=== PATIENT | male | born 2000 | race Caucasian/White ===

== ENCOUNTER 2020-11-09 00:12 | Inpatient (IN) | payer MEDICAID ==
[~2020-11-09] VITALS: Ht 185.4 cm; Wt 117.0 kg
[2020-11-09] MEDS ORDERED: BISACODYL 10 MG SUPP PR PRN (01:00)
[2020-11-09] MEDS ORDERED: ACETAMINOPHEN 325 MG TABLET PO PRN (01:00)
[2020-11-09] MEDS ORDERED: DOCUSATE 100 MG CAPSULE PO PRN (01:00)
[2020-11-09] MEDS ORDERED: POLYETHYLENE GLYCOL 17 GM PACKET PO PRN (01:00)
[2020-11-09] MEDS ORDERED: ONDANSETRON ODT 4 MG PO PRN (01:00)
[2020-11-09 01:15] VITALS: BP 101/71
[2020-11-09] MEDS ORDERED: HYDROXYZINE PAMOATE 50MG CAP PO PRN (01:30)
[2020-11-09] MEDS ORDERED: PLEASE ENTER ALLERGIES MC SCH (01:30)
[2020-11-09] MEDS ORDERED: PLEASE ENTER HEIGHT AND WEIGHT MC SCH (01:30)
[2020-11-09 02:26] VITALS: BP 101/71
[2020-11-09 07:43] VITALS: BP 99/69
[2020-11-09] MEDS: DIVALPROEX 500 MG TABLET.DR PO SCH ×2 (08:55→21:21)
[2020-11-09] MEDS ORDERED: NICOTINE 14MG/24 HR PATCH.TD24 ONE (08:59)
[2020-11-09 09:51] LABS: CHOL/HDL RATIO 2.9; FREE T4 (FREE THYROXINE) 1.25 ng/dL (0.76-1.46); LDL/HDL RATIO 1.5 (0.5-3.0)
[2020-11-09] MEDS ORDERED: ESCI10TA97 PO ×2 (11:06→11:17)
[2020-11-09] MEDS ORDERED: VENL225T PO (11:17)
[2020-11-09] MEDS ORDERED: BUSP10TA PO (11:17)
[2020-11-09] MEDS ORDERED: RISP2TAB35 PO (11:17)
[2020-11-09] MEDS ORDERED: PROG100C10 PO (11:17)
[2020-11-09] MEDS ORDERED: SPIR100T4 PO (11:17)
[2020-11-09] MEDS ORDERED: PRAZ1CAP2 PO (11:17)
[2020-11-09] MEDS ORDERED: ALPR1TAB2 PO (11:17)
[2020-11-09] MEDS ORDERED: ESTR2TAB PO (11:17)
[2020-11-09 14:09] LABS: BASOPHILS % (AUTO) 1 % (0-1); EOSINOPHILS % (AUTO) 3 % (1-7); LYMPHOCYTES % (AUTO) 18 % (22-44); MEAN CORPUSCULAR HEMOGLOBIN 27.4 pg (27.5-34.5); MEAN CORPUSCULAR HGB CONC 33.1 g/dL (33.2-36.2); MEAN PLATELET VOLUME 10.4 fL (7.4-10.4); MONOCYTES % (AUTO) 7 % (2-9); NEUTROPHILS % (AUTO) 71 % (42-75); PLATELET COUNT 312 x10^3/uL (130-400); RED BLOOD COUNT 5.25 x10^6/uL (4.38-5.82); RED CELL DISTRIBUTION WIDTH 13.5 % (9.4-14.8)
[2020-11-09 14:29] LABS: ANION GAP 10 mmol/L (5-15); CHLORIDE 113 mmol/L (98-107); CREATININE 1.69 mg/dL (0.7-1.3)
[2020-11-09] MEDS: BUSPIRONE 10 MG TABLET PO SCH ×2 (14:45→21:21)
[2020-11-09] MEDS: VENLAFAXINE 75 MG CAP ER PO SCH (14:45)
[2020-11-09] MEDS ORDERED: ALBUTEROL HFA 90 MCG/SPRAY INH PRN (15:30)
[2020-11-09] MEDS: PROGESTERONE 100 MG CAPSULE PO SCH (16:31)
[2020-11-09 18:11] LABS: MD SCAN
[2020-11-09 19:30] VITALS: BP 103/69
[2020-11-09] MEDS: RISPERIDONE 2 MG TABLET PO SCH (21:21)
[2020-11-09] MEDS: PRAZOSIN 1 MG CAPSULE PO SCH (21:21)
[2020-11-09] MEDS: SPIRONOLACTONE 100 MG TABLET PO SCH (21:21)
[2020-11-09] MEDS: ESTRADIOL 2 MG TABLET PO SCH (21:21)
[2020-11-09] MEDS: NICOTINE 14MG/24 HR PATCH.TD24 TD SCH (21:22)
[2020-11-10 07:24] VITALS: BP 92/64
[2020-11-10] MEDS: ESTRADIOL 2 MG TABLET PO SCH ×2 (09:10→21:03)
[2020-11-10] MEDS: SPIRONOLACTONE 100 MG TABLET PO SCH ×2 (09:10→21:04)
[2020-11-10] MEDS: DIVALPROEX 500 MG TABLET.DR PO SCH ×2 (09:10→21:04)
[2020-11-10] MEDS: VENLAFAXINE 75 MG CAP ER PO SCH (09:10)
[2020-11-10] MEDS: BUSPIRONE 10 MG TABLET PO SCH ×2 (09:10→21:04)
[2020-11-10] MEDS: PROGESTERONE 100 MG CAPSULE PO SCH (09:11)
[2020-11-10] MEDS: NICOTINE 14MG/24 HR PATCH.TD24 TD SCH (09:42)
[2020-11-10] MEDS: LORazepam 1MG TABLET PO PRN (18:48)
[2020-11-10 19:51] VITALS: BP 92/76
[2020-11-10] MEDS: RISPERIDONE 2 MG TABLET PO SCH (21:04)
[2020-11-10] MEDS: PRAZOSIN 1 MG CAPSULE PO SCH (21:04)
[2020-11-11 07:52] VITALS: BP 102/71
[2020-11-11] MEDS: VENLAFAXINE 75 MG CAP ER PO SCH (08:29)
[2020-11-11] MEDS: LORazepam 1MG TABLET PO PRN ×2 (08:29→15:54)
[2020-11-11] MEDS: ESTRADIOL 2 MG TABLET PO SCH ×2 (08:29→20:24)
[2020-11-11] MEDS: DIVALPROEX 500 MG TABLET.DR PO SCH ×2 (08:29→20:24)
[2020-11-11] MEDS: BUSPIRONE 10 MG TABLET PO SCH ×2 (08:30→20:24)
[2020-11-11] MEDS: SPIRONOLACTONE 100 MG TABLET PO SCH ×2 (08:30→20:23)
[2020-11-11] MEDS: PROGESTERONE 100 MG CAPSULE PO SCH (08:30)
[2020-11-11] MEDS: NICOTINE 21 MG/24 HR PATCH.TD24 TD SCH (15:54)
[2020-11-11 19:38] VITALS: BP 113/79
[2020-11-11] MEDS: PRAZOSIN 1 MG CAPSULE PO SCH (20:24)
[2020-11-11] MEDS: RISPERIDONE 2 MG TABLET PO SCH (20:24)
[2020-11-12 07:45] VITALS: BP 116/77
[2020-11-12] MEDS: BUSPIRONE 10 MG TABLET PO SCH ×2 (08:07→20:30)
[2020-11-12] MEDS: VENLAFAXINE 75 MG CAP ER PO SCH (08:08)
[2020-11-12] MEDS: SPIRONOLACTONE 100 MG TABLET PO SCH ×2 (08:08→20:32)
[2020-11-12] MEDS: DIVALPROEX 500 MG TABLET.DR PO SCH ×2 (08:08→20:30)
[2020-11-12] MEDS: LORazepam 1MG TABLET PO PRN (08:08)
[2020-11-12] MEDS: ESTRADIOL 2 MG TABLET PO SCH ×2 (08:08→20:31)
[2020-11-12] MEDS: PROGESTERONE 100 MG CAPSULE PO SCH (09:00)
[2020-11-12] MEDS: NICOTINE 21 MG/24 HR PATCH.TD24 TD SCH (15:44)
[2020-11-12 19:22] VITALS: BP 128/85
[2020-11-12] MEDS: PRAZOSIN 1 MG CAPSULE PO SCH (20:31)
[2020-11-12] MEDS: RISPERIDONE 2 MG TABLET PO SCH (20:31)
[2020-11-13 07:32] VITALS: BP 113/78
[2020-11-13] MEDS: ESTRADIOL 2 MG TABLET PO SCH ×2 (07:57→20:34)
[2020-11-13] MEDS: DIVALPROEX 500 MG TABLET.DR PO SCH ×2 (07:58→20:34)
[2020-11-13] MEDS: BUSPIRONE 10 MG TABLET PO SCH ×2 (07:58→20:34)
[2020-11-13] MEDS: SPIRONOLACTONE 100 MG TABLET PO SCH ×2 (07:58→20:34)
[2020-11-13] MEDS: LORazepam 1MG TABLET PO PRN (07:58)
[2020-11-13] MEDS: VENLAFAXINE 75 MG CAP ER PO SCH (07:58)
[2020-11-13] MEDS: PROGESTERONE 100 MG CAPSULE PO SCH (09:00)
[2020-11-13] MEDS: NICOTINE 21 MG/24 HR PATCH.TD24 TD SCH (16:02)
[2020-11-13 19:23] VITALS: BP 125/86
[2020-11-13] MEDS: PRAZOSIN 1 MG CAPSULE PO SCH (20:34)
[2020-11-13] MEDS: RISPERIDONE 2 MG TABLET PO SCH (20:35)
[2020-11-13] MEDS ORDERED: MELATONIN 3 MG TABLET PO SCH (23:00)
[2020-11-13] MEDS ORDERED: MELATONIN MC SCH (23:45)
[2020-11-14] MEDS ORDERED: MELATONIN 3 MG TABLET PO PRN ×2 (01:00→23:00)
[2020-11-14 07:31] VITALS: BP 120/86
[2020-11-14] MEDS: DIVALPROEX 500 MG TABLET.DR PO SCH (08:05)
[2020-11-14] MEDS: BUSPIRONE 10 MG TABLET PO SCH (08:05)
[2020-11-14] MEDS: PROGESTERONE 100 MG CAPSULE PO SCH (08:05)
[2020-11-14] MEDS: ESTRADIOL 2 MG TABLET PO SCH (08:05)
[2020-11-14] MEDS: SPIRONOLACTONE 100 MG TABLET PO SCH (08:05)
[2020-11-14] MEDS: VENLAFAXINE 75 MG CAP ER PO SCH (08:06)
[2020-11-14] MEDS ORDERED: DIVA-61 PO (13:30)
[2020-11-14] MEDS ORDERED: HYDR50CA2 PO (13:30)
[2020-11-14] MEDS ORDERED: MELA3TAB31 PO (13:30)
[2020-11-14] MEDS ORDERED: BUSP10TA PO (13:30)
[2020-11-14] MEDS ORDERED: ALBU18HF INH (13:30)
[2020-11-14] MEDS ORDERED: NICO-587 TD (13:30)
[2020-11-14] MEDS ORDERED: MELATONIN 3 MG TABLET PO SCH (23:00)
== END 2020-11-14 14:13 | disposition home or self-care (01) | DRG 751 ==
LOC: 3E 00:12 → UNDOADMIN 00:12 → 3E 01:12
PROVIDERS: ADMIT Psychiatry & Neurology Psychosomatic Medicine; ATTEND Psychiatry & Neurology Psychosomatic Medicine
DX: F33.2 Major depressive disorder, recurrent severe without psychotic features (principal); F11.20 Opioid dependence, uncomplicated; D72.829 Elevated white blood cell count, unspecified; F43.10 Post-traumatic stress disorder, unspecified; F60.3 Borderline personality disorder; F64.9 Gender identity disorder, unspecified; I12.9 Hypertensive chronic kidney disease with stage 1 through stage 4 chronic kidney disease, or unspecified chronic kidney disease; J45.909 Unspecified asthma, uncomplicated; N18.9 Chronic kidney disease, unspecified; T50.902A Poisoning by unspecified drugs, medicaments and biological substances, intentional self-harm, initial encounter; Z66 Do not resuscitate; F13.20 Sedative, hypnotic or anxiolytic dependence, uncomplicated; F17.210 Nicotine dependence, cigarettes, uncomplicated; Z91.5 Personal history of self-harm; Z90.49 Acquired absence of other specified parts of digestive tract; Z88.1 Allergy status to other antibiotic agents; Z88.8 Allergy status to other drugs, medicaments and biological substances
CPT/HCPCS: 36415; 71045; 80048; 80061; 82607; 84145; 84439; 84443; 85025

== ENCOUNTER 2021-03-18 17:55 | Inpatient (IN) | payer MEDICAID ==
[~2021-03-18] VITALS: Ht 185.4 cm; Wt 110.4 kg
[~2021-03-18 17:55] MED LIST: ALBU18HF INH; ALPR1TAB2 PO; BUSP10TA PO; DIVA-61 PO; ESCI10TA97 PO; ESTR2TAB PO; HYDR50CA2 PO; MELA3TAB31 PO; NICO-587 TD; PRAZ1CAP2 PO; PROG100C10 PO; RISP2TAB35 PO; SPIR100T4 PO; VENL225T PO
[2021-03-18] MEDS ORDERED: DOCUSATE 100 MG CAPSULE PO PRN (20:00)
[2021-03-18] MEDS ORDERED: POLYETHYLENE GLYCOL 17 GM PACKET PO PRN (20:00)
[2021-03-18] MEDS ORDERED: ONDANSETRON ODT 4 MG PO PRN (20:00)
[2021-03-18] MEDS ORDERED: BISACODYL 10 MG SUPP PR PRN (20:00)
[2021-03-18 21:00] VITALS: BP 135/101
[2021-03-18] MEDS: SPIRONOLACTONE 100 MG TABLET PO SCH (21:00)
[2021-03-18] MEDS ORDERED: TOPIRAMATE 25 MG TABLET PO SCH (21:00)
[2021-03-18] MEDS ORDERED: SPIRONOLACTONE 50 MG TABLET ONE (21:48)
[2021-03-18] MEDS ORDERED: NICOTINE 14MG/24 HR PATCH.TD24 ONE (21:51)
[2021-03-18] MEDS: ESTRADIOL 2 MG TABLET PO SCH (21:54)
[2021-03-18] MEDS: NICOTINE 14MG/24 HR PATCH.TD24 TD SCH (21:57)
[2021-03-18] MEDS: QUETIAPINE 100MG TABLET PO PRN (22:00)
[2021-03-19 06:01] LABS: BASOPHILS % (AUTO) 1 % (0-1); EOSINOPHILS % (AUTO) 3 % (1-7); LYMPHOCYTES % (AUTO) 33 % (22-44); MEAN CORPUSCULAR HEMOGLOBIN 27.7 pg (27.5-34.5); MEAN CORPUSCULAR HGB CONC 34.2 g/dL (33.2-36.2); MEAN PLATELET VOLUME 10.1 fL (7.4-10.4); MONOCYTES % (AUTO) 6 % (2-9); NEUTROPHILS % (AUTO) 57 % (42-75); PLATELET COUNT 223 x10^3/uL (130-400); RED BLOOD COUNT 6.11 x10^6/uL (4.38-5.82); RED CELL DISTRIBUTION WIDTH 13.6 % (9.4-14.8)
[2021-03-19 06:19] LABS: ALBUMIN 3.2 g/dL (3.4-5.0); ANION GAP 9 mmol/L (5-15); CALCIUM 9.6 mg/dL (8.5-10.1); CHLORIDE 105 mmol/L (98-107)
[2021-03-19 06:49] LABS: ALANINE AMINOTRANSFERASE 26 U/L (12-78); ALKALINE PHOSPHATASE 71 U/L (45-117); BILIRUBIN,TOTAL 0.9 mg/dL (0.2-1.0); CREATININE 1.17 mg/dL (0.7-1.3); FREE T4 (FREE THYROXINE) 1.14 ng/dL (0.76-1.46); TOTAL PROTEIN 7.3 g/dL (6.4-8.2)
[2021-03-19 07:30] VITALS: BP 129/88
[2021-03-19] MEDS ORDERED: DULOXETINE 30 MG CAPSULE.DR PO SCH (09:00)
[2021-03-19] MEDS: SPIRONOLACTONE 100 MG TABLET PO SCH ×2 (09:06→20:35)
[2021-03-19] MEDS: ESTRADIOL 2 MG TABLET PO SCH ×2 (09:06→20:35)
[2021-03-19] MEDS: PROGESTERONE 100 MG CAPSULE PO SCH (09:07)
[2021-03-19 18:14] VITALS: BP 152/86
[2021-03-19] MEDS ORDERED: SPIRONOLACTONE 50 MG TABLET ONE (20:28)
[2021-03-19] MEDS: TOPIRAMATE 25 MG TABLET PO SCH (20:35)
[2021-03-19] MEDS: NICOTINE 14MG/24 HR PATCH.TD24 TD SCH (20:35)
[2021-03-19] MEDS: QUETIAPINE 100MG TABLET PO PRN (20:44)
[2021-03-20 07:23] VITALS: BP 115/84
[2021-03-20] MEDS: SPIRONOLACTONE 100 MG TABLET PO SCH ×2 (08:38→20:25)
[2021-03-20] MEDS: DULOXETINE 30 MG CAPSULE.DR PO SCH (08:38)
[2021-03-20] MEDS: PROGESTERONE 100 MG CAPSULE PO SCH (08:39)
[2021-03-20] MEDS: ESTRADIOL 2 MG TABLET PO SCH ×2 (08:39→20:24)
[2021-03-20] MEDS: NICOTINE 14MG/24 HR PATCH.TD24 TD SCH (08:41)
[2021-03-20] MEDS: ACETAMINOPHEN 325 MG TABLET PO PRN ×3 (08:43→20:24)
[2021-03-20] MEDS: LIDODERM 5% PATCH TD SCH (14:23)
[2021-03-20 19:47] VITALS: BP 128/89
[2021-03-20] MEDS: QUETIAPINE 100MG TABLET PO PRN (20:25)
[2021-03-20] MEDS: TOPIRAMATE 25 MG TABLET PO SCH (20:25)
[2021-03-20 21:23] LABS: MICROSCOPIC AUTO
[2021-03-21] MEDS: LIDODERM REMOVE PATCH NOTE XX SCH (02:33)
[2021-03-21 07:20] VITALS: BP 131/91
[2021-03-21] MEDS: ESTRADIOL 2 MG TABLET PO SCH ×2 (08:08→20:48)
[2021-03-21] MEDS: DULOXETINE 30 MG CAPSULE.DR PO SCH (08:08)
[2021-03-21] MEDS: SPIRONOLACTONE 100 MG TABLET PO SCH ×2 (08:08→20:48)
[2021-03-21] MEDS: PROGESTERONE 100 MG CAPSULE PO SCH (08:08)
[2021-03-21] MEDS: NICOTINE 14MG/24 HR PATCH.TD24 TD SCH (08:08)
[2021-03-21] MEDS: LIDODERM 5% PATCH TD SCH (14:57)
[2021-03-21 18:31] VITALS: BP 131/91
[2021-03-21] MEDS: LITHIUM CARBONATE 300 MG CAPSULE PO SCH (20:48)
[2021-03-21] MEDS: ACETAMINOPHEN 325 MG TABLET PO PRN (20:48)
[2021-03-21] MEDS: TOPIRAMATE 25 MG TABLET PO SCH (20:48)
[2021-03-21] MEDS: QUETIAPINE 100MG TABLET PO PRN (20:48)
[2021-03-22] MEDS: LIDODERM REMOVE PATCH NOTE XX SCH (02:30)
[2021-03-22 07:42] VITALS: BP 125/81
[2021-03-22] MEDS: SPIRONOLACTONE 100 MG TABLET PO SCH ×2 (08:59→20:53)
[2021-03-22] MEDS: ESTRADIOL 2 MG TABLET PO SCH ×2 (08:59→20:53)
[2021-03-22] MEDS: NICOTINE 14MG/24 HR PATCH.TD24 TD SCH (08:59)
[2021-03-22] MEDS: DULOXETINE 30 MG CAPSULE.DR PO SCH (08:59)
[2021-03-22] MEDS: PROGESTERONE 100 MG CAPSULE PO SCH (08:59)
[2021-03-22] MEDS: LIDODERM 5% PATCH TD SCH (14:30)
[2021-03-22 19:07] VITALS: BP 124/88
[2021-03-22] MEDS: LITHIUM CARBONATE 300 MG CAPSULE PO SCH (20:54)
[2021-03-22] MEDS: TOPIRAMATE 25 MG TABLET PO SCH (20:54)
[2021-03-22] MEDS: QUETIAPINE 100MG TABLET PO PRN (20:58)
[2021-03-23] MEDS: LIDODERM REMOVE PATCH NOTE XX SCH (02:30)
[2021-03-23 06:41] VITALS: BP 119/89
[2021-03-23] MEDS ORDERED: COVID-19 VAC,AD26(JANSSEN)/PF 0.5ML IM-VACC ONE ×2 (08:00→16:30)
[2021-03-23] MEDS: PROGESTERONE 100 MG CAPSULE PO SCH (09:00)
[2021-03-23] MEDS: SPIRONOLACTONE 100 MG TABLET PO SCH ×2 (09:00→20:15)
[2021-03-23] MEDS: DULOXETINE 30 MG CAPSULE.DR PO SCH (09:00)
[2021-03-23] MEDS: ESTRADIOL 2 MG TABLET PO SCH ×2 (09:00→20:15)
[2021-03-23] MEDS: NICOTINE 14MG/24 HR PATCH.TD24 TD SCH (09:03)
[2021-03-23] MEDS: LIDODERM 5% PATCH TD SCH (14:30)
[2021-03-23 19:44] VITALS: BP 119/82
[2021-03-23] MEDS: LITHIUM CARBONATE 300 MG CAPSULE PO SCH (20:15)
[2021-03-23] MEDS: TOPIRAMATE 25 MG TABLET PO SCH (20:15)
[2021-03-24] MEDS: LIDODERM REMOVE PATCH NOTE XX SCH (01:30)
[2021-03-24 07:27] VITALS: BP 126/90
[2021-03-24] MEDS: NICOTINE 14MG/24 HR PATCH.TD24 TD SCH (08:30)
[2021-03-24] MEDS: DULOXETINE 30 MG CAPSULE.DR PO SCH (08:30)
[2021-03-24] MEDS: ESTRADIOL 2 MG TABLET PO SCH ×2 (08:30→20:24)
[2021-03-24] MEDS: PROGESTERONE 100 MG CAPSULE PO SCH (08:31)
[2021-03-24] MEDS: SPIRONOLACTONE 100 MG TABLET PO SCH ×2 (08:31→20:24)
[2021-03-24] MEDS: LIDODERM 5% PATCH TD SCH (13:25)
[2021-03-24] MEDS: ACETAMINOPHEN 325 MG TABLET PO PRN ×2 (13:25→20:24)
[2021-03-24 19:34] VITALS: BP 127/83
[2021-03-24] MEDS: QUETIAPINE 100MG TABLET PO PRN (20:24)
[2021-03-24] MEDS: TOPIRAMATE 25 MG TABLET PO SCH (20:24)
[2021-03-24] MEDS: LITHIUM CARBONATE 300 MG CAPSULE PO SCH (20:24)
[2021-03-25] MEDS: LIDODERM REMOVE PATCH NOTE XX SCH (02:30)
[2021-03-25 07:27] VITALS: BP 107/75
[2021-03-25] MEDS: ESTRADIOL 2 MG TABLET PO SCH ×2 (07:54→20:55)
[2021-03-25] MEDS: DULOXETINE 30 MG CAPSULE.DR PO SCH (07:54)
[2021-03-25] MEDS: PROGESTERONE 100 MG CAPSULE PO SCH (07:54)
[2021-03-25] MEDS: SPIRONOLACTONE 100 MG TABLET PO SCH ×2 (07:54→20:55)
[2021-03-25] MEDS: NICOTINE 14MG/24 HR PATCH.TD24 TD SCH (07:55)
[2021-03-25] MEDS: LIDODERM 5% PATCH TD SCH (14:30)
[2021-03-25] MEDS ORDERED: LIDODERM 5% PATCH TD PRN (15:00)
[2021-03-25] MEDS ORDERED: LIDODERM REMOVE PATCH NOTE XX PRN (15:00)
[2021-03-25 19:09] VITALS: BP 121/93
[2021-03-25] MEDS: TOPIRAMATE 25 MG TABLET PO SCH (20:55)
[2021-03-25] MEDS: LITHIUM CARBONATE 300 MG CAPSULE PO SCH (20:55)
[2021-03-26 07:31] VITALS: BP 130/80
[2021-03-26] MEDS: PROGESTERONE 100 MG CAPSULE PO SCH (08:22)
[2021-03-26] MEDS: SPIRONOLACTONE 100 MG TABLET PO SCH ×2 (08:22→20:30)
[2021-03-26] MEDS: ESTRADIOL 2 MG TABLET PO SCH ×2 (08:22→20:31)
[2021-03-26] MEDS: DULOXETINE 30 MG CAPSULE.DR PO SCH (08:22)
[2021-03-26] MEDS: NICOTINE 14MG/24 HR PATCH.TD24 TD SCH (08:23)
[2021-03-26 19:39] VITALS: BP 135/90
[2021-03-26] MEDS: QUETIAPINE 100MG TABLET PO PRN (20:30)
[2021-03-26] MEDS: LITHIUM CARBONATE 300 MG CAPSULE PO SCH (20:31)
[2021-03-26] MEDS: TOPIRAMATE 25 MG TABLET PO SCH (20:31)
[2021-03-27 07:09] VITALS: BP 117/80
[2021-03-27] MEDS: SPIRONOLACTONE 100 MG TABLET PO SCH ×2 (08:29→20:09)
[2021-03-27] MEDS: DULOXETINE 30 MG CAPSULE.DR PO SCH (08:30)
[2021-03-27] MEDS: PROGESTERONE 100 MG CAPSULE PO SCH (08:30)
[2021-03-27] MEDS: ESTRADIOL 2 MG TABLET PO SCH ×2 (08:31→20:09)
[2021-03-27] MEDS: NICOTINE 14MG/24 HR PATCH.TD24 TD SCH (08:31)
[2021-03-27 19:08] VITALS: BP 121/81
[2021-03-27] MEDS: QUETIAPINE 100MG TABLET PO PRN (20:08)
[2021-03-27] MEDS: TOPIRAMATE 25 MG TABLET PO SCH (20:09)
[2021-03-27] MEDS: LITHIUM CARBONATE 300 MG CAPSULE PO SCH (20:09)
[2021-03-28 07:23] VITALS: BP 118/84
[2021-03-28] MEDS: PROGESTERONE 100 MG CAPSULE PO SCH (08:45)
[2021-03-28] MEDS: ESTRADIOL 2 MG TABLET PO SCH ×2 (08:45→20:04)
[2021-03-28] MEDS: SPIRONOLACTONE 100 MG TABLET PO SCH ×2 (08:45→20:04)
[2021-03-28] MEDS: NICOTINE 14MG/24 HR PATCH.TD24 TD SCH (08:45)
[2021-03-28] MEDS: DULOXETINE 30 MG CAPSULE.DR PO SCH (08:45)
[2021-03-28 19:24] VITALS: BP 135/80
[2021-03-28] MEDS: TOPIRAMATE 25 MG TABLET PO SCH (20:04)
[2021-03-28] MEDS: ACETAMINOPHEN 325 MG TABLET PO PRN (20:05)
[2021-03-28] MEDS: QUETIAPINE 100MG TABLET PO PRN (20:05)
[2021-03-28] MEDS: LITHIUM CARBONATE 300 MG CAPSULE PO SCH (20:05)
[2021-03-29 07:18] VITALS: BP 117/75
[2021-03-29] MEDS: DULOXETINE 30 MG CAPSULE.DR PO SCH (08:25)
[2021-03-29] MEDS: SPIRONOLACTONE 100 MG TABLET PO SCH ×2 (08:25→20:23)
[2021-03-29] MEDS: PROGESTERONE 100 MG CAPSULE PO SCH (08:25)
[2021-03-29] MEDS: ESTRADIOL 2 MG TABLET PO SCH ×2 (08:25→20:23)
[2021-03-29] MEDS: NICOTINE 14MG/24 HR PATCH.TD24 TD SCH (08:26)
[2021-03-29 19:03] VITALS: BP 117/75
[2021-03-29] MEDS: TOPIRAMATE 25 MG TABLET PO SCH (20:23)
[2021-03-29] MEDS: QUETIAPINE 100MG TABLET PO PRN (20:23)
[2021-03-29] MEDS: LITHIUM CARBONATE 300 MG CAPSULE PO SCH (20:23)
[2021-03-30 07:20] VITALS: BP 111/63
[2021-03-30] MEDS: ESTRADIOL 2 MG TABLET PO SCH (08:33)
[2021-03-30] MEDS: DULOXETINE 30 MG CAPSULE.DR PO SCH (08:37)
[2021-03-30] MEDS: PROGESTERONE 100 MG CAPSULE PO SCH (08:37)
[2021-03-30] MEDS: SPIRONOLACTONE 100 MG TABLET PO SCH (08:37)
[2021-03-30] MEDS: NICOTINE 14MG/24 HR PATCH.TD24 TD SCH (08:38)
[2021-03-30] MEDS ORDERED: NICO-486 TD (13:27)
[2021-03-30] MEDS ORDERED: LITH300C PO (13:27)
[2021-03-30] MEDS ORDERED: TOPI25TA32 PO (13:27)
[2021-03-30] MEDS ORDERED: DULO30CA2 PO (13:27)
[2021-03-30] MEDS ORDERED: QUET100T PO (13:27)
== END 2021-03-30 14:37 | disposition home or self-care (01) | DRG 885 ==
LOC: 3E 17:55 → UNDOADMIN 17:55
PROVIDERS: ADMIT Psychiatry & Neurology Psychosomatic Medicine; ATTEND Psychiatry & Neurology Psychosomatic Medicine
DX: F33.2 Major depressive disorder, recurrent severe without psychotic features (principal); N18.9 Chronic kidney disease, unspecified; R45.851 Suicidal ideations; E87.1 Hypo-osmolality and hyponatremia; Z20.822 Contact with and (suspected) exposure to COVID-19; F43.10 Post-traumatic stress disorder, unspecified; F64.9 Gender identity disorder, unspecified; F60.3 Borderline personality disorder; R45.850 Homicidal ideations; I12.9 Hypertensive chronic kidney disease with stage 1 through stage 4 chronic kidney disease, or unspecified chronic kidney disease; F41.9 Anxiety disorder, unspecified; J45.909 Unspecified asthma, uncomplicated; F17.210 Nicotine dependence, cigarettes, uncomplicated; G47.00 Insomnia, unspecified; D72.829 Elevated white blood cell count, unspecified; Z88.0 Allergy status to penicillin; Z90.49 Acquired absence of other specified parts of digestive tract; Z88.1 Allergy status to other antibiotic agents; K59.00 Constipation, unspecified; Z59.9 Problem related to housing and economic circumstances, unspecified; Z79.899 Other long term (current) drug therapy
CPT/HCPCS: 36415; 80053; 81001; 82607; 84439; 84443; 85025; 91303; U0005; U0003